=== PATIENT | female | born 1990 | race Caucasian/White ===

== ENCOUNTER 2020-07-01 16:38 | Emergency (ER) | payer OTHER ==
[~2020-07-01] VITALS: Ht 162.6 cm; Wt 74.8 kg
[2020-07-01 16:42] VITALS: BP 130/74
--- NOTE | 2020-07-01 16:52 | NUR ---
Patient ambulated with steady gait to bed 6.
--- NOTE | 2020-07-01 16:55 | NUR ---
PATIENT PRESENTS TO ED WITH RASH, FACIAL SWELLING, SORE THROAT, ABD X 2 DAYS. PT STATES SHE HAD FACIAL SWELLING, BODY ACHES, SORE THROAT, AND ABD PAIN AND WENT TO SEE HER PCP. PT RECIEVED SEVERAL PRESCRIPTIONS AND DEVELOPED RASH. DENIES N/V/D; SKIN IS PINK/WARM/DRY; AAOX4 WITH EVEN AND STEADY GAIT; LUNGS CLEAR BL; HR EVEN AND REGULAR; VSS; PATIENT POSITIONED FOR COMFORT; HOB ELEVATED; BEDRAILS UP X2; BED DOWN. ER MD MADE AWARE OF PT STATUS. PHM: UNKNOWN SKIN INFECTION DANIEL
--- NOTE | 2020-07-01 17:00 | NUR ---
DR. WHITAKER SEEING PT
[2020-07-01 17:21] VITALS: BP 130/74
--- NOTE | 2020-07-01 17:21 | NUR ---
Patient discharged with v/s stable. Written and verbal after care instructions given and explained. Patient verbalized understanding. Ambulatory with steady gait. All questions addressed prior to discharge. Advised to follow up with PMD.
== END 2020-07-01 17:21 | disposition home or self-care (01) ==
LOC: MED 16:38
DX: R21 Rash and other nonspecific skin eruption (principal)
CPT/HCPCS: 99282